=== PATIENT | male | born 1985 | race African-American/Black ===

== ENCOUNTER 2016-08-29 11:55 | Emergency (ER) | payer SELFPAY ==
[~2016-08-29] VITALS: Ht 175.3 cm; Wt 63.5 kg
[2016-08-29 12:10] VITALS: BP 152/86
[2016-08-29 12:27] LABS: BILIRUBIN,URINE NEGATIVE (NEG); GLUCOSE,URINE NEGATIVE (NEG); NITRITE,URINE NEGATIVE (NEG); PH,URINE 7.5; PROTEIN,URINE NEGATIVE (NEG-TRACE)
[2016-08-29] MEDS ORDERED: cefTRIAXone IM 250 MG VIAL IM ONE (12:30)
[2016-08-29] MEDS ORDERED: AZITHROMYCIN 250 MG TABLET. PO ONE (12:30)
[2016-08-29] MEDS ORDERED: metroNIDAZOLE 500 MG TABLET PO ONE (12:30)
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
[2016-08-29 12:38] LABS: BACTERIA,URINE 0 /HPF (0-FEW)
[2016-08-29] MEDS ORDERED: CIPR500T94 PO (12:49)
--- NOTE | 2016-08-31 10:02 | VNOTE ---
CALL BACK NOTE CALL BACK Microbiology 08/29/16 Urine Culture - Preliminary, Resulted 08/29/16 Urine Culture Result 1 (ARJUN) - Preliminary, Resulted Attempted to contact patient at the phone number listed by registration at [phone]. No answer occurred, message was left for the patient to call back. Patient was positive for gonorrhoeae patient was treated appropriately here in the emergency department. PIYUSH LIZARRAGA APRN August 31, 2016 10:02
--- NOTE | 2016-08-31 11:52 | VNOTE ---
CALL BACK NOTE CALL BACK Microbiology 08/29/16 Urine Culture - Preliminary, Resulted 08/29/16 Urine Culture Result 1 (ARJUN) - Preliminary, Resulted Patient had returned a phone call in regards to the message left. Patient was instructed that he was positive for gonorrhea and that he needs to notify his sexual partners. Patient was treated here in the emergency department. So no further treatment for him as needed. Also instructed patient to avoid having sexual intercourse with his partners until they've been treated and they need to be treated for 2 weeks. Patient was also instructed to use condoms to prevent sexual transmitted infections from being spread. PIYUSH LIZARRAGA CERTIFIED NUTRITIONIST August 31, 2016 11:52
== END 2016-08-29 12:57 | disposition home or self-care (01) ==
LOC: ER 11:55
DX: N39.0 Urinary tract infection, site not specified (principal)
CPT/HCPCS: 81001; 87086; 87491; 87591; 96372; 99284; J0696; Q0144

== ENCOUNTER 2016-10-13 18:17 | Emergency (ER) | payer OTHER ==
[~2016-10-13 18:17] MED LIST: CIPR500T94 PO
[2016-10-13 18:56] VITALS: BP 148/80
[2016-10-13] MEDS ORDERED: LIDOCAINE 1% / SOD BICARB 8.4% 20 ML VIAL. IJ ONE (19:00)
[2016-10-13] MEDS ORDERED: CIPR500T94 PO (19:44)
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
== END 2016-10-13 19:54 | disposition home or self-care (01) ==
LOC: ER 18:17
DX: S61.411A Laceration without foreign body of right hand, initial encounter (principal); W26.0XXA Contact with knife, initial encounter; Y93.89 Activity, other specified; Y92.89 Other specified places as the place of occurrence of the external cause; Y99.8 Other external cause status
CPT/HCPCS: 12001; 99283-25

== ENCOUNTER 2017-09-03 08:59 | Emergency (ER) | payer OTHER ==
[2017-09-03] MEDS: diphenhydrAMINE HCL 25 MG CAPSULE PO (09:39)
[2017-09-03] MEDS: HYDROcodone/APAP 5/325MG 1 TAB TABLET PO (09:40)
[2017-09-03] MEDS: METOCLOPRAMIDE 10 MG TABLET. PO (09:40)
== END 2017-09-03 10:43 | disposition home or self-care (01) ==
LOC: ER 08:59
DX: J32.9 Chronic sinusitis, unspecified (principal)
CPT/HCPCS: 99284; J8597; Q0163